=== PATIENT | male | born 1990 | race Caucasian/White ===

== ENCOUNTER 2019-03-27 00:01 | Emergency (ER) | payer OTHER ==
[2019-03-27 00:15] VITALS: BP 128/80; PULSE 83; TEMP 97.4; BMI 23.8
[2019-03-27] MEDS ORDERED: SILVER SULFADIAZINE 1% TOP CREAM 50 GM JAR TP ONE (01:08)
[2019-03-27] MEDS ORDERED: BACITRACIN 0.9 GM PACKET ONE (01:08)
[2019-03-27] MEDS ORDERED: KETOROLAC TROMETHAMINE 60 MG/2 ML VIAL IM ONE (01:23)
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
[2019-03-27] MEDS ORDERED: KETOROLAC TROMETHAMINE 60 MG/2 ML VIAL ONE (01:38)
== END 2019-03-27 01:40 | disposition home or self-care (01) ==
LOC: JER 00:01
PROC: 3E0233Z Introduction of Anti-inflammatory into Muscle, Percutaneous Approach (ICD-10-PCS; principal; 2019-03-27)
DX: T26.41XA Burn of right eye and adnexa, part unspecified, initial encounter (principal); X08.8XXA Exposure to other specified smoke, fire and flames, initial encounter; Y93.89 Activity, other specified; Y92.009 Unspecified place in unspecified non-institutional (private) residence as the place of occurrence of the external cause
CPT/HCPCS: 99282-25

== ENCOUNTER 2021-03-23 22:08 | Emergency (ER) | payer OTHER ==
[2021-03-23 22:31] VITALS: BP 143/80; PULSE 86; TEMP 97.4; BMI 17.0
[2021-03-23] MEDS ORDERED: KETOROLAC TROMETHAMINE 30 MG/1 ML VIAL ONE (22:35)
== END 2021-03-24 01:16 | disposition home or self-care (01) ==
LOC: JER 22:08
PROC: 3E0233Z Introduction of Anti-inflammatory into Muscle, Percutaneous Approach (ICD-10-PCS; principal; 2021-03-23)
DX: M79.671 Pain in right foot (principal)
CPT/HCPCS: 73610-TC-RT-FY; 73630-TC-RT-FY; 99284-25

== ENCOUNTER 2021-12-25 19:33 | Emergency (ER) | payer OTHER ==
[2021-12-25 20:04] VITALS: BP 119/72; PULSE 88; RESP 20; TEMP 98; BMI 29.8
[2021-12-25] MEDS ORDERED: DEXAMETHASONE SOD PHOSPHATE 10 MG/1 ML VIAL IM ONE (21:34)
[2021-12-25] MEDS ORDERED: DEXAMETHASONE SOD PHOSPHATE 10 MG/1 ML VIAL ONE (21:43)
== END 2021-12-25 22:19 | disposition home or self-care (01) ==
LOC: JERFT 19:33
PROC: 3E0233Z Introduction of Anti-inflammatory into Muscle, Percutaneous Approach (ICD-10-PCS; principal; 2021-12-25)
DX: L23.7 Allergic contact dermatitis due to plants, except food (principal)
CPT/HCPCS: 99284-25; J1100

== ENCOUNTER 2022-02-06 13:18 | Emergency (ER) | payer OTHER ==
[2022-02-06 13:49] VITALS: BP 122/70; PULSE 86; RESP 18; TEMP 97.9; BMI 29.1
[2022-02-06] MEDS ORDERED: DIPHTH,PERTUSS(ACELL),TET 0.5 ML DISP.SYRIN IM ONE ×2 (14:16→14:21)
[2022-02-06] MEDS ORDERED: ACETAMINOPHEN 325 MG TABLET (FP) PO ONE (14:16)
[2022-02-06] MEDS ORDERED: ACETAMINOPHEN 325 MG TABLET (FP) ONE (14:20)
== END 2022-02-06 14:44 | disposition home or self-care (01) ==
LOC: JER 13:18 → JERFT 13:18
PROC: 3E0234Z Introduction of Serum, Toxoid and Vaccine into Muscle, Percutaneous Approach (ICD-10-PCS; principal; 2022-02-06)
DX: S00.81XA Abrasion of other part of head, initial encounter (principal); W22.8XXA Striking against or struck by other objects, initial encounter
CPT/HCPCS: 90471; 90715; 99284-25

== ENCOUNTER 2023-04-14 09:16 | Emergency (ER) | payer OTHER ==
[2023-04-14 09:31] VITALS: BMI 29.1
[2023-04-14] MEDS ORDERED: SODIUM CHLORIDE 0.9% 500 ML INFUS.BAG IV ONE (09:43)
[2023-04-14] MEDS ORDERED: ACETAMINOPHEN 1000 MG/100 ML BAG IVPB ONE (09:43)
[2023-04-14 09:44] VITALS: PULSE 116; RESP 22
[2023-04-14] MEDS ORDERED: ACETAMINOPHEN INJECTION 100 ML IVPB ONE ×2 (09:55→10:33)
[2023-04-14 11:42] VITALS: BP 98/49; TEMP 100.6
== END 2023-04-14 11:58 | disposition home or self-care (01) ==
LOC: JER 09:16
PROC: 3E033NZ Introduction of Analgesics, Hypnotics, Sedatives into Peripheral Vein, Percutaneous Approach (ICD-10-PCS; principal; 2023-04-14)
DX: R50.9 Fever, unspecified (principal); R05.9 Cough, unspecified; M79.10 Myalgia, unspecified site; R51.9 Headache, unspecified; J02.9 Acute pharyngitis, unspecified; U07.1 COVID-19
CPT/HCPCS: 0241U-QW; 99284-25

== ENCOUNTER 2023-06-20 11:36 | Emergency (ER) | payer OTHER ==
[2023-06-20 12:04] VITALS: BP 111/66; PULSE 81; RESP 16; TEMP 98.3; BMI 29.2
== END 2023-06-20 13:03 | disposition home or self-care (01) ==
LOC: JERFT 11:36
DX: R05.9 Cough, unspecified (principal); R09.81 Nasal congestion; J06.9 Acute upper respiratory infection, unspecified; J10.1 Influenza due to other identified influenza virus with other respiratory manifestations; Z20.822 Contact with and (suspected) exposure to COVID-19
CPT/HCPCS: 0241U-QW; 99283-25

== ENCOUNTER 2024-03-10 14:30 | Emergency (ER) | payer SELFPAY ==
[2024-03-10 15:19] VITALS: BP 117/74; PULSE 91; RESP 16; TEMP 98.3; BMI 29.2
[2024-03-10 15:54] LABS: THROAT:GRP A STREP NOT DETECTED (NOTDETECTED)
== END 2024-03-10 16:20 | disposition home or self-care (01) ==
LOC: JERFT 14:30
DX: R09.81 Nasal congestion (principal); B34.9 Viral infection, unspecified; M79.10 Myalgia, unspecified site; R68.83 Chills (without fever); Z20.822 Contact with and (suspected) exposure to COVID-19
CPT/HCPCS: 0241U-QW; 87651; 99283-25